=== PATIENT | female | born 1995 ===

== ENCOUNTER 2017-12-03 17:15 | Emergency (ER) | payer OTHER ==
[2017-12-03] MEDS ORDERED: Albuterol-Ipratrop 3 mg / 0.5 (3 ml) UD INH STA (17:29)
--- NOTE | 2017-12-03 17:36 | ED PDOC ---
History of Present Illness History of Present Illness: 22 y/o female presents to the ED complaining of nasal congestion and shortness of breath intermittently. Reports taking claritin and using albuterol inhaler without relief. Reports nausea but no vomiting. Denies fever, chills or any further medical complaints. PMd: none HPI: Influenza Time Seen by Provider: 12/03/17 17:25 Chief Complaint: Cough, Cold, Congestion Chief Complaint (Provider): Cough, Cold, Congestion History Per: Patient Exam Limitations: no limitations Symptoms include: nasal congestion, other (shortness of breath) Past Medical History Reviewed: Historical Data, Nursing Documentation, Vital Signs Vital Signs: Last Vital Signs Temp 99.2 F 12/03/17 17:19 Pulse 109 H 12/03/17 17:19 Resp 16 12/03/17 17:19 BP 140/94 H 12/03/17 17:19 Pulse Ox 96 12/03/17 17:19 - Medical History PMH: No Chronic Diseases - Surgical History Surgical History: No Surg Hx - Family History Family History: States: Unknown Family Hx - Home Medications Home Medications: Ambulatory Orders Medication Instructions Recorded Albuterol 0.083% [Albuterol 0.083% 2.5 mg IH Q8 PRN #100 neb 12/03/17 Inhal Lorrie (2.5 mg/3 ml) UD] Cetirizine HCl [Zyrtec] 10 mg PO DAILY #14 tab.rapdis 12/03/17 Fluticasone Propionate [Flonase] 2 spr IN DAILY #1 bottle 12/03/17 Mask, Face [Nebulizer Aerosol Mask 1 dev XX PRN PRN #1 dev 12/03/17 Adult] Nebulizer [Aeroeclipse II] 1 each MC Q8 PRN #1 each 12/03/17 predniSONE [Prednisone] 3 tab PO DAILY #12 tab 12/03/17 - Allergies Allergies/Adverse Reactions: Allergies Allergy/AdvReac Type Severity Reaction Status Date / Time No Known Allergies Allergy Verified 12/03/17 17:19 Review of Systems ROS Statement: Except As Marked, All Systems Reviewed And Found Negative (As per HPI, otherwise negative) Constitutional: Negative for: Fever, Chills ENT: Positive for: Nose Congestion Respiratory: Positive for: Shortness of Breath Gastrointestinal: Positive for: Nausea. Negative for: Vomiting Physical Exam - Reviewed Nursing Documentation Reviewed: Yes Vital Signs Reviewed: Yes - Physical Exam Appears: Positive for: Non-toxic, No Acute Distress Skin: Positive for: Normal Color Eye Exam: Positive for: Normal appearance Neck: Positive for: Normal Cardiovascular/Chest: Positive for: Regular Rate, Rhythm. Negative for: Murmur Respiratory: Positive for: Wheezing (bilaterally), Respiratory Distress (mild) Back: Positive for: Normal Inspection Extremity: Positive for: Normal ROM. Negative for: Deformity Neurologic/Psych: Positive for: Alert, Oriented Medical Decision Making Medical Decision Making: Time: 17:29 Plan: Albuterol 3ml INH Prednisone 60mg PO Peak flow pre/post tx Reevaluation Scribe Attestation: Documented by Jada Pina acting as a scribe for Asad Pina MD. Scribe Attestation: All medical record entries made by the Scribe were at my direction and personally dictated by me. I have reviewed the chart and agree that the record accurately reflects my personal performance of the history, physical exam, medical decision making, and the department course for this patient. I have also personally directed, reviewed, and agree with the discharge instructions and disposition. - ECG ECG Rhythm: Positive for: Sinus Tachycardia (at 107). Negative for: ST/T Changes O2 Sat by Pulse Oximetry: 96 Disposition - Clinical Impression Clinical Impression: Asthma exacerbation, Seasonal allergies - Patient ED Disposition Is Patient to be Admitted: No - Disposition Disposition: Routine/Home Disposition Time: 18:38 Condition: FAIR Prescriptions: Albuterol 0.083% [Albuterol 0.083% Inhal Lorrie (2.5 mg/3 ml) UD] 2.5 mg IH Q8 PRN #100 neb PRN Reason: Shortness Of Breath Cetirizine HCl [Zyrtec] 10 mg PO DAILY #14 tab.rapdis Fluticasone Propionate [Flonase] 2 spr IN DAILY #1 bottle Mask, Face [Nebulizer Aerosol Mask Adult] 1 dev XX PRN PRN #1 dev PRN Reason: Shortness Of Breath Nebulizer [Aeroeclipse II] 1 each MC Q8 PRN #1 each PRN Reason: Shortness Of Breath predniSONE [Prednisone] 3 tab PO DAILY #12 tab Instructions: Seasonal Allergies in Adults, Asthma, Adult (DC) Forms: [facility] ([place]), [facility] ED School/Work Excuse
[2017-12-03] MEDS ORDERED: Albuterol-Ipratrop 3 mg / 0.5 (3 ml) UD ONE (17:37)
[2017-12-03 18:38] VITALS: BP 106/60; PULSE 102; RESP 18; TEMP 98
[2017-12-03 21:45] VITALS: O2SAT 96
== END 2017-12-03 18:38 | disposition home or self-care (01) ==
LOC: H.ER 17:15
DX: J45.901 Unspecified asthma with (acute) exacerbation (principal); J30.2 Other seasonal allergic rhinitis